=== PATIENT | male | born 1950 | race Caucasian/White ===

== ENCOUNTER 2018-10-19 14:24 | Emergency (ER) | payer MEDICARE, OTHER ==
[~2018-10-19] VITALS: Ht 180.3 cm; Wt 109.1 kg
[~2018-10-19 14:24] MED LIST: LIDOcaine 1% w/EPI 1:100,000 30ml vial (MDV) ONE
[2018-10-19] MEDS ORDERED: amox tr/potassium clavulanate 875/125mg TAB PO ONE (16:25)
[2018-10-19] MEDS ORDERED: AMOX-580 PO (16:27)
[2018-10-19 16:57] VITALS: BP 123/80
== END 2018-10-19 16:59 | disposition home or self-care (01) ==
LOC: ER 14:24
DX: S00.05XA Superficial foreign body of scalp, initial encounter (principal); Z79.899 Other long term (current) drug therapy; W20.8XXA Other cause of strike by thrown, projected or falling object, initial encounter; Y93.89 Activity, other specified; Y92.89 Other specified places as the place of occurrence of the external cause; Y99.8 Other external cause status
CPT/HCPCS: 10120; 99284; J3490